=== PATIENT | male | born 1950 | race Caucasian/White ===

== ENCOUNTER 2024-09-01 09:38 | Emergency (ER) | payer MEDICARE, SELFPAY ==
[2024-09-01] VITALS (10 sets, daily range): BP systolic 115–144; BP diastolic 62–69
--- NOTE | 2024-09-01 10:17 | ED.GENMED ---
History of Present Illness
General
Chief Complaint: Abnormal Lab Value
Source: patient and records
Exam Limitations: none
Time Seen by Provider: 09/01/24 10:42
Nursing documentation reviewed up to this point in time: agreed with
History of Present Illness
History of Present Illness:
74 yo male w h/o admission 06/08-06/20 for Acute hemolytic anemia, Cold-agglutinin disease. Heme-positive stool. Elevated liver function tests and hyperbilirubinemia as a part of the hemolytic process.
Acute hypoxic respiratory insufficiency secondary to pneumonia, suspect aspiration event, Recent COVID-19 pneumonia. The patient was positive on June 04, negative on June 08. Unvaccinated host.
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
Sent here from Hematology offic Dr. Sierra for low Hgb on out pt lab.
Pt has been SOB with exertion, had cough with thick phlegm for past 2 weeks since having the Flu.
Denies fever/chills, n/v/d/c now. Denies chest pain.
Past History
Past History
ED Past Medical History: Cancer, HTN, IDDM (new 05/2024), Other (gout, benign pancreatic tumor) and Other (Hemolytic anemia , Cold Agglutinin disease)
ED Past Surgical History: Orthopedic and Other (WHIPPLE for benign pancreatic tumore w parthial pancreatic resection. )
Social History
Tobacco: Non-smoker
Alcohol: Occasional
Drug: None
Personal:
Living: with family
Employment: Employed
Family History
Family History: Other
Review of Systems
Review of Systems
Allergies reviewed?: Yes
All Other Systems: ROS reviewed and negative except as documented in HPI and ROS
Constitutional: Reports fatigue; Denies fever
Respiratory: Reports cough and trouble breathing (GERARD)
Cardiac: Denies chest pain
ABD/GI: Denies abdominal pain, nausea, vomiting, constipated or anorexia
: Denies dysuria or difficulty voiding
Musculoskeletal: Reports no symptoms
Skin: Reports no symptoms
Neurological: Reports weakness (generalized); Denies dizzy, headache or numbness
Phy Exam
Physical Exam
Physical Exam:
GENERAL: No acute distress. A&Ox3.
CONSTITUTIONAL: Afebrile.
EYES: clear, conjunctivae normal
ENMT: moist mucus membranes, Pharynx nl
RESPIRATORY: Regular respirations, nonlabored, lungs clear.
CARDIOVASCULAR: Regular rate and rhythm, no murmurs, no rubs.
GI: Soft, nontender, normal BS
Rectal: stool heme neg
MUSCULOSKELETAL: Moves with ease. Well perfused.
SKIN: Warm, dry, pale
PSYCH: Normal mood and affect. Well kept, interactive and appropriate
NEUROLOGIC: Awake, alert and oriented. No focal neurological deficits
Course
Orders/Labs/Results
Orders:
Orders
09/01/24 09:50
Type+Screen Urgent
Comprehensive Metabolic Panel Urgent
09/01/24 10:42
CR Chest - 2 Views Urgent
Comment:
Reason For Exam: Persistent cough with thick phlegm x 2-3 wks
09/01/24 12:11
* Blood Bank Products Urgent
Blood Bank Products: *Packed RBC Leuko(PRBC's)
Quantity: 1
Transfuse Today: Yes
Reason: Anemia
09/01/24 12:12
IV Insert/Care/Rem.- Treatment PRN
09/01/24 12:13
Complete Blood Count/With Diff Urgent
09/01/24 13:54
Doxycycline [Vibramycin] 100 mg PO NOW STA
Abnormal Lab Results
09/01/24 09/01/24
09:50 12:13
RBC 2.31 L 10^6/uL
(4.70-6.10)
Hgb 8.6 L g/dL
(13.0-18.0)
Hct 21.8 L %
(39.0-52.0)
MCV 94.4 H fL
(80.0-94.0)
MCH 37.2 H pg
(27.0-31.0)
MCHC 39.4 H g/dL
(33.0-37.0)
RDW 16.0 H %
(11.5-14.5)
Plt Count 419 H 10^3/uL
(130-400)
MPV 10.5 H fL
(7.4-10.4)
Abs Immat Gran (auto) 0.2 H 10^3/uL
(0-0.05)
Absolute Neuts (auto) 7.0 H 10^3/uL
(1.4-6.5)
Absolute Lymphs (auto) 1.1 L 10^3/uL
(1.2-3.4)
Absolute Monos (auto) 0.9 H 10^3/uL
(0.1-0.6)
Immature Gran % 1.6 H %
(0-0.5)
Lymphocytes % 11.4 L %
(20.5-51.1)
Monocytes % 9.4 H %
(1.7-9.3)
Glucose 175 H mg/dl
(70-99)
Total Bilirubin 3.1 H mg/dl
(0.2-1.3)
Alkaline Phosphatase 138 H U/L
(38-126)
Crossmatch IS Only See Detail
Crossmatch (AHG) See Detail
09/01/24 12:13
09/01/24 09:50
Vital Signs
Initial and Last Documented VS:
Initial Vital Signs
Temp Pulse Resp BP Pulse Ox
97.6 F 94 16 144/66 99
09/01/24 09:41 09/01/24 09:41 09/01/24 09:41 09/01/24 09:41 09/01/24 09:41
Last Documented Vital Signs
Temp Pulse Resp BP Pulse Ox
97.8 F 80 18 119/69 95
09/01/24 17:33 09/01/24 17:33 09/01/24 17:33 09/01/24 17:33 09/01/24 17:33
MDM/Problems Addressed
MDM/Problems Addressed:
74 yo male w h/o admission 06/08-06/20 for Acute hemolytic anemia, Cold-agglutinin disease. Heme-positive stool. Elevated liver function tests and hyperbilirubinemia as a part of the hemolytic process.
Acute hypoxic respiratory insufficiency secondary to pneumonia, suspect aspiration event, Recent COVID-19 pneumonia. The patient was positive on June 04, negative on June 08. Unvaccinated host.
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
Sent here from Hematology office Dr. Sierra for low Hgb on out pt lab.
Pt has been SOB with exertion, continues with cough with thick phlegm for past 2 weeks since having the Flu.
Denies fever/chills, n/v/d/c now. Denies chest pain.
Afebrile, NAD
11:15 a.m.
Spoke with pt and in WR. Bloods drawn and results pending
Requesting CXR as he's had cough with thick mucus past 2 weeks.
11:50
CBC not back yet, called lab and was told 'pt has 'agglutinin' and that it will take awhile for results to come back. They said they need to warm the tube and possibly saline replace it.'
informed me at Hematology office today was told that pt Hgb went from 12.0- 9.0
Stool heme neg
Pt and informed.
Texted Dr. Zhou with above info. He request transfusing 1 unit packed red blood cells today.
PRBCs ordered
12:20 PM:
CBC: H GB 8.6
Chest x-ray: Radiology report read:IMPRESSION:
There is minimal linear interstitial or airspace disease at the lateral left lung base which may be subsegmental atelectasis, scarring or minimal interstitial pneumonia
Plan: Treat for early PNA: Doxycycline 100 mg twice daily x 10 days
1 unit PRBCs infused with no adverse effects
*Critical Care Note
Total Time (30-74mins, 75-104mins- exclusive of procedures): Not Applicable
ED Attending Note
-
Portions of this chart may have been created with voice recognition software.� Occasional wrong word or��sound alike� substitutions may have occurred due to the inherent limitations of voice recognition software.
Discharge Plan
Departure
Patient Disposition: Home (Routine Discharge)
Date of Disposition: 09/01/24
Time of Disposition: 17:23
Patient with high blood pressure during this ER visit?: No
Condition: Good
Discharge Problem:
Cold autoimmune hemolytic anemia, Acute hemolytic anemia, Pneumonia
Instructions: Pneumonia in adults, Autoimmune hemolytic anemia
Prescriptions:
New
doxycycline hyclate 100 mg capsule
100 mg PO BID Qty: 19 0RF
No Action
amlodipine 5 MG tablet
5 mg PO DAILY
allopurinol 100 MG tablet
100 mg PO DAILY
folic acid 1 mg Tablet
1 mg PO DAILY
Creon 36,000-114,000- 180,000 unit Capsule,Delayed Release(Dr/Ec)
3 cap PO TID
Creon 36,000-114,000- 180,000 unit Capsule,Delayed Release(Dr/Ec)
1 cap PO DAILYPRN PRN (Reason: snack)
Referrals:
Mohamud Lebron MD [Family Provider] -
Activity Restrictions/Additional Instructions:
As we discussed, you have what may be an early pneumonia on your chest x-ray. I sent a prescription for doxycycline to take twice a day for 10 days to your pharmacy, started tomorrow as you had a dose here tonight.
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
Interventions
Interventions:
*Risk Screen - Suicide Last Done: 09/01/24 09:41
*General Assessment Last Done: 09/01/24 09:41
*Neglect/Abuse Screening Last Done: 09/01/24 12:04
ED- Fall Risk Assessment Last Done: 09/01/24 17:48
*ED COVID-19 Vaccine History Last Done: 09/01/24 09:41
*Nursing Disposition Last Done: 09/01/24 17:48
Discharge Date and Time
Discharge Date/Time: 09/01/24 17:49
Print Language: TAIWANESE
[2024-09-01 10:27] LABS: ALT (SGPT) 20 U/L (0-50); AST (SGOT) 38 U/L (17-59); Alkaline Phosphatase 138 U/L (38-126); Blood Urea Nitrogen 18 mg/dl (9-20); Calcium 8.6 mg/dl (8.4-10.2); Carbon Dioxide 27 mmol/L (22-30); Chloride 104 mmol/L (98-107); Glucose 175 mg/dl (70-99); Potassium 4.6 mmol/L (3.5-5.1); Sodium 137 mmol/L (135-145); Total Bilirubin 3.1 mg/dl (0.2-1.3); Total Protein 6.7 g/dl (6.3-8.2); eGFR > 60.00
[2024-09-01 13:29] LABS: % Basophils 0.6 % (0-2); % Eosinophils 3.7 % (0-6); % Immature Granulocytes 1.6 % (0-0.5); % Lymphocytes 11.4 % (20.5-51.1); % Monocytes 9.4 % (1.7-9.3); % Neutrophils 73.3 % (42.2-75.2); Absolute Basophils 0.1 10^3/uL (0-0.2); Absolute Eosinophils 0.4 10^3/uL (0-0.7); Absolute Immature Granulocytes 0.2 10^3/uL (0-0.05); Absolute Lymphocytes 1.1 10^3/uL (1.2-3.4); Absolute Monocytes 0.9 10^3/uL (0.1-0.6); Hematocrit 21.8 % (39.0-52.0); Hemoglobin 8.6 g/dL (13.0-18.0); Mean Corp Hgb Conc. 39.4 g/dL (33.0-37.0); Mean Corpuscular Hgb 37.2 pg (27.0-31.0); Mean Corpuscular Volume 94.4 fL (80.0-94.0); Mean Platelet Volume 10.5 fL (7.4-10.4); Nucleated Red Blood Cells % 0.2 % (-); Platelet Count 419 10^3/uL (130-400); Red Blood Cell Count 2.31 10^6/uL (4.70-6.10); White Blood Cell Count 9.5 10^3/uL (4.8-10.8)
[2024-09-01] MEDS: VIBRAMYCIN 100 MG PO (14:17)
== END 2024-09-01 17:49 | disposition home or self-care (01) ==
LOC: EMR 09:38
PROVIDERS: Emergency Medicine; EMERGENCY PHYSICIAN Emergency Medicine; FAMILY PHYSICIAN Family Medicine
DX: D59.12 Cold autoimmune hemolytic anemia (principal); J18.9 Pneumonia, unspecified organism; I10 Essential (primary) hypertension; E11.9 Type 2 diabetes mellitus without complications; Z79.4 Long term (current) use of insulin; Z90.411 Acquired partial absence of pancreas; Z90.49 Acquired absence of other specified parts of digestive tract
CPT/HCPCS: 99283; 36430; 71046; 80053; 85025; 86850; 86900; 86901; 86920; 86922; P9016